=== PATIENT | male | born 1985 | race Caucasian/White ===

== ENCOUNTER 2019-11-26 04:58 | Emergency (ER) | payer BC ==
[2019-11-26] MEDS ORDERED: MORPHINE 4 MG/ML SYR ONE (05:53)
--- NOTE | 2019-11-26 07:01 | ER ---
Nurse's Notes [facility] Name: William Pickett Age: 34 yrs Sex: Male : 1985 Arrival Date: 11/26/2019 Time: 05:01 Bed 20 Private MD: Diagnosis: Cervical Spondylosis;Right Shoulder Pain Presentation: 11/25 05:06 Chief complaint: Patient states: R shoulder pain that began on Saturday, denies trauma or sg injury, states was seen by PCP and prescribed tramadol with no relief in the pain this morning, states a massage yesterday had made the pain worse today pt has a bottle of ketorolac in pocket at this time. Coronavirus screen: Client denies travel out of the [place] in the last 14 days. At this time, the client does not indicate any symptoms associated with coronavirus-19. Ebola Screen: Patient negative for fever greater than or equal to 101.5 degrees Fahrenheit, and additional compatible Ebola Virus Disease symptoms Patient denies exposure to infectious person. Patient denies travel to an Ebola-affected area in the 21 days before illness onset. No symptoms or risks identified at this time. Initial Sepsis Screen: Does the patient meet any 2 criteria? No. Patient's initial sepsis screen is negative. Does the patient have a suspected source of infection? No. Patient's initial sepsis screen is negative. Risk Assessment: Do you want to hurt yourself or someone else? Patient reports no desire to harm self or others. Onset of symptoms was November 22, 2019. Care prior to arrival: Medication(s) given: tramadol 50 mg as prescribed. Transition of care: patient was not received from another setting of care. 05:06 Method Of Arrival: Ambulatory 05:06 Acuity: MARTHA 4 sg Historical: - Allergies: 05:09 No Known Allergies; sg - Home Meds: 05:09 Tramadol Oral [Active]; sg - PMHx: 05:09 None; sg - PSHx: 05:09 None; sg - Immunization history:: Adult Immunizations up to date. - Social history:: Smoking status: Patient denies any tobacco usage or history of. Patient/guardian denies using street drugs, Patient/guardian denies using IV drugs. Screenin:10 Abuse screen: Denies threats or abuse. Nutritional screening: No deficits noted. vc Tuberculosis screening: No symptoms or risk factors identified. Fall Risk None identified. Assessment: 05:10 General: Appears in no apparent distress. uncomfortable, obese, well groomed, Behavior vc is calm, cooperative, appropriate for age. Pain: Complains of pain in anterior aspect of right shoulder, posterior aspect of right shoulder and right posterior aspect of neck Pain radiates to right arm Pain currently is 8 out of 10 on a pain scale. at worst was 10 out of 10 on a pain scale. Quality of pain is described as radiating, sharp, Pain began 2-3 days ago. Is continuous, Alleviated by medications, Aggravated by increased activity, Noted to be grimacing, guarding, resistant to movement, pacing. Neuro: Level of Consciousness is awake, alert, obeys commands, Oriented to person, place, time, situation, Appropriate for age. Cardiovascular: Capillary refill < 3 seconds Patient's skin is warm and dry. Respiratory: Airway is patent Respiratory effort is even, unlabored, Respiratory pattern is regular, symmetrical. GI: No deficits noted. : No deficits noted. Musculoskeletal: Reports pain in anterior aspect of right shoulder and posterior aspect of right shoulder since Saturday night. Pain is 8 out of 10 on a pain scale. Vital Signs: 05:06 Pulse 87; Resp 16; Temp 97.7; Pulse Ox 100% on R/A; Weight 127.01 kg; Height 5 ft. 9 sg in. (175.26 cm); Pain 1010; 05:06 BP 182 / 101; sg 06:55 BP 170 / 70 LA Sitting (man/reg); Pulse 87 MON; sg 05:06 Body Mass Index 41.35 (127.01 kg, 175.26 cm) ED Course: 05:01 Patient arrived in ED. bp1 05:06 Arm band placed on. sg 05:09 Triage completed. sg 05:10 Patient has correct armband on for positive identification. Bed in low position. Call vc light in reach. Pulse ox on. NIBP on. 05:26 Isaac Mae MD is Attending Physician. 7 05:33 Viviana Wilson, DAVID is Primary Nurse. vc 05:45 Shoulder Right (2 View) XRAY In Process Unspecified. EDMS 06:02 CT C Spine In Process Unspecified. EDMS 06:58 Spike Hill MD is Referral Physician. [facility] 07:21 No provider procedures requiring assistance completed. IV discontinued, intact, vc bleeding controlled, No redness/swelling at site. Pressure dressing applied. Administered Medications: 05:48 Drug: morphine 4 mg Route: IM; Site: left deltoid; vc 07:23 Follow up: Response: No adverse reaction; Pain is decreased vc Outcome: 07:00 Discharge ordered by MD. [facility] 07:21 Discharged to home ambulatory. vc 07:21 Condition: good 07:21 Discharge instructions given to patient, Instructed on discharge instructions, follow up and referral plans. no drinking with medication, no driving heavy equipment, medication usage, Demonstrated understanding of instructions, follow-up care, medications, Prescriptions given X 1. 07:23 Patient left the ED. vc Signatures: Dispatcher [employer] EDMS Spike Reynoso, RN RN Viviana Marmolejo RN RN vc Geeta Whitten Maurice, MD MD 7 Corrections: (The following items were deleted from the chart) 05:24 05:06 Chief complaint: Patient states: R shoulder pain that began on Saturday, denies sg trauma or injury, states was seen by PCP and prescribed tramadol with no relief in the pain this morning, states a massage yesterday had made the pain worse today sg
--- NOTE | 2019-11-26 07:01 | EDPHYS ---
Physician Documentation [facility] Name: William Pickett Age: 34 yrs Sex: Male : 1985 Arrival Date: 11/26/2019 Time: 05:01 Bed 20 Private MD: ED Physician Isaac Mae HPI: 11/25 05:35 This 34 yrs old Male presents to ER via Ambulatory with complaints of mh7 Shoulder Pain. 05:35 The patient or guardian complains of pain, that is acute, tenderness. right shoulder. mh7 Context: The problem was sustained at home, resulted from an unknown reason, The patient experiences decreased range of motion, when rotates arm, The patient reports no obvious deformity. Onset: The symptoms/episode began/occurred 3 day(s) ago. Modifying factors: the symptoms are alleviated by nothing. The symptoms are aggravated by lifting weight, movement, rotation of arm. Associated signs and symptoms: Pertinent negatives: abdominal pain, chest pain, diaphoresis, dyspnea, shortness of breath. 05:37 Associated signs and symptoms: Pertinent positives: neck pain. Severity of symptoms: At mh7 their worst the symptoms were moderate, last night, in the emergency department the symptoms have improved, moderately. Treatment prior to arrival includes: prescription medications, Ketorolac. The patient has been recently seen by a physician: the patient's primary care provider. Historical: - Allergies: 05:09 No Known Allergies; sg - Home Meds: 05:09 Tramadol Oral [Active]; sg - PMHx: 05:09 None; sg - PSHx: 05:09 None; sg - Immunization history:: Adult Immunizations up to date. - Social history:: Smoking status: Patient denies any tobacco usage or history of. Patient/guardian denies using street drugs, Patient/guardian denies using IV drugs. ROS: 05:37 Constitutional: Negative for fever, chills, and weight loss, Eyes: Negative for injury, mh7 pain, redness, and discharge, ENT: Negative for injury, pain, and discharge, Cardiovascular: Negative for chest pain, palpitations, and edema, Respiratory: Negative for shortness of breath, cough, wheezing, and pleuritic chest pain, Abdomen/GI: Negative for abdominal pain, nausea, vomiting, diarrhea, and constipation, Back: Negative for injury and pain, : Negative for injury, bleeding, discharge, and swelling, Skin: Negative for injury, rash, and discoloration, Neuro: Negative for headache, weakness, numbness, tingling, and seizure, Psych: Negative for depression, anxiety, suicide ideation, homicidal ideation, and hallucinations, Allergy/Immunology: Negative for hives, rash, and allergies, Endocrine: Negative for neck swelling, polydipsia, polyuria, polyphagia, and marked weight changes, Hematologic/Lymphatic: Negative for swollen nodes, abnormal bleeding, and unusual bruising. Exam: 05:37 Head/Face: Normocephalic, atraumatic. Eyes: Pupils equal round and reactive to light, mh7 extra-ocular motions intact. Lids and lashes normal. Conjunctiva and sclera are non-icteric and not injected. Cornea within normal limits. Periorbital areas with no swelling, redness, or edema. 05:37 Chest/axilla: Normal chest wall appearance and motion. Nontender with no deformity. No lesions are appreciated. Cardiovascular: Regular rate and rhythm with a normal S1 and S2. No gallops, murmurs, or rubs. Normal PMI, no JVD. No pulse deficits. Respiratory: Lungs have equal breath sounds bilaterally, clear to auscultation and percussion. No rales, rhonchi or wheezes noted. No increased work of breathing, no retractions or nasal flaring. Abdomen/GI: Soft, non-tender, with normal bowel sounds. No distension or tympany. No guarding or rebound. No evidence of tenderness throughout. Back: No spinal tenderness. No costovertebral tenderness. Full range of motion. Skin: Warm, dry with normal turgor. Normal color with no rashes, no lesions, and no evidence of cellulitis. 05:37 Neuro: Awake and alert, GCS 15, oriented to person, place, time, and situation. Cranial nerves II-XII grossly intact. Motor strength 5/5 in all extremities. Sensory grossly intact. Cerebellar exam normal. Normal gait. Psych: Awake, alert, with orientation to person, place and time. Behavior, mood, and affect are within normal limits. 05:37 Constitutional: The patient appears in no acute distress, alert, awake, uncomfortable. 05:37 Neck: External neck: tenderness, that is moderate, of the right trapezius, C-spine: appears grossly normal, Thyroid: appears normal, Trachea: is midline with no obvious abnormalities, ROM/movement: pain, that is moderate, with rotation to the left, limited range of motion, is not appreciated, Meningeal signs: are not present, nuchal rigidity, is not appreciated, Lymph nodes: no appreciated lymphadenopathy. 05:37 Musculoskeletal/extremity: Extremities: noted in the posterior aspect of right shoulder: pain, tenderness, ROM: limited active range of motion due to pain, in the posterior aspect of right shoulder, limited passive range of motion due to pain, in the posterior aspect of right shoulder, Circulation is intact in all extremities. Pulses: are normal with no appreciated deficits, Perfusion: the patient is normally perfused throughout, Perfusion: the extremity is normally perfused throughout, Sensation intact. Compartment Syndrome exam of affected extremity: is normal. no numbness, no tingling, no sensation deficit, no palor, no weak pulses, Joints: All joints are normal except the right shoulder displays painful range of motion, tenderness, Weight bearing: able to fully bear weight, without difficulty, Tendon exam: specific tendon testing normal through active and passive range of motion Vital Signs: 05:06 Pulse 87; Resp 16; Temp 97.7; Pulse Ox 100% on R/A; Weight 127.01 kg; Height 5 ft. 9 sg in. (175.26 cm); Pain 10/10; 05:06 BP 182 / 101; sg 06:55 BP 170 / 70 LA Sitting (man/reg); Pulse 87 MON; sg 05:06 Body Mass Index 41.35 (127.01 kg, 175.26 cm) MDM: 05:33 Patient medically screened. [facility] 06:42 Differential diagnosis: Anterior dislocation without fracture, Posterior dislocation mh7 without fracture, DJD, tendonitis. Data reviewed: vital signs, nurses notes, radiologic studies, CT scan, plain films. Data interpreted: Pulse oximetry: on room air is 100 %. Interpretation: normal. Counseling: I had a detailed discussion with the patient and/or guardian regarding: the historical points, exam findings, and any diagnostic results supporting the discharge/admit diagnosis, radiology results, the need for outpatient follow up, to return to the emergency department if symptoms worsen or persist or if there are any questions or concerns that arise at home. Response to treatment: the patient's symptoms have markedly improved after treatment. 06:58 Refusal of service: The patient/guardian displays adequate decision making capability [facility] and despite a detailed discussion of alternatives, benefits, risks, and consequences refuses: all lab tests. 11/25 05:34 Order name: CT C Spine [facility] 11/25 05:34 Order name: Shoulder Right (2 View) XRAY [facility] Administered Medications: 05:48 Drug: morphine 4 mg Route: IM; Site: left deltoid; vc 07:23 Follow up: Response: No adverse reaction; Pain is decreased vc Disposition: 11/26/19 07:00 Discharged to Home. Impression: Cervical Spondylosis, Right Shoulder Pain. - Condition is Stable. - Discharge Instructions: Shoulder Pain, [id number], Cervical Radiculopathy, [id number]. - Prescriptions for Robaxin 500 mg Oral Tablet - take 2 tablet by ORAL route every 6 hours As needed; 40 tablet. - Work release form, Medication Reconciliation Form, Thank You Letter, Antibiotic Education, Prescription Opioid Use form. - Follow up: Private Physician; When: 1 - 2 days; Reason: Worsening of condition, Recheck today's complaints, Continuance of care, Re-evaluation by your physician. Follow up: Spike Hill MD; When: 1 - 2 days; Reason: Worsening of condition, Recheck today's complaints. - Problem is new. - Symptoms have improved. Signatures: Dispatcher [employer] EDSpike Rees, DAVID RN sg Viviana Wilson RN RN vc Holmes, Maurice, MD MD 7 Corrections: (The following items were deleted from the chart) 07:23 07:00 11/26/2019 07:00 Discharged to Home. Impression: Cervical Spondylosis; Right vc Shoulder Pain. Condition is Stable. Forms are Medication Reconciliation Form, Thank You Letter, Antibiotic Education, Prescription Opioid Use. Follow up: Private Physician; When: 1 - 2 days; Reason: Worsening of condition, Recheck today's complaints, Continuance of care, Re-evaluation by your physician. Follow up: Spike Hill; When: 1 - 2 days; Reason: Worsening of condition, Recheck today's complaints. Problem is new. Symptoms have improved. [facility]
[2019-11-26 07:28] VITALS: TEMP 97.7; O2SAT 100
[2019-11-26 07:29] VITALS: BP 170/70
--- NOTE | 2019-11-26 07:39 | RAD REPORT ---
EXAM DESCRIPTION: RAD - Shoulder Right 2 View - 11/26/2019 5:45 am CLINICAL HISTORY: Right shoulder pain FINDINGS: No fracture or dislocation is seen. Mild narrowing AC joint
--- NOTE | 2019-11-26 16:26 | RAD REPORT ---
EXAM DESCRIPTION: CT - C Spine Wo Con - 11/26/2019 6:45 am CLINICAL HISTORY: The patient is 34 years old and is Male; RADICULOPATHY TECHNIQUE: Axial computed tomography images of the cervical spine without intravenous contrast. Sa gittal and coronal reformatted images were created and reviewed. This CT exam was performed using o ne or more of the following dose reduction techniques: automated exposure control, adjustment of th e mA and/or kV according to patient size, and/or use of iterative reconstruction technique. COMPARISON: No relevant prior studies available. FINDINGS: VERTEBRAE: The vertebral body heights and alignment are maintained. There is no acute fr acture. 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 Minimal posterior osteophyte for mation at C5-C6 and C6-C7 is present. Mild bilateral neural foraminal narrowing at C5-C6 and C6-C7 is noted. There is no significant canal stenosis. SOFT TISSUES: The soft tissues are normal. LUNG APICES: The lung apices are clear. IMPRESSION: Mild spondylosis of the lower cervical spine. Electronically signed by: Francoise Gama MD 11/26/2019 6:11 AM CDT Due to temporary technical issues with the PACS/Fluency reporting system, reports are being signed by the in house radiologist without Review as a courtesy to ensure prompt reporting. The interpreting radiologist is fully responsible fo r the content of the report.
== END 2019-11-26 07:23 | disposition home or self-care (01) ==
LOC: ER 04:58
DX: M47.892 Other spondylosis, cervical region (principal)
CPT/HCPCS: 72125; 96372; 99284